=== PATIENT | female | born 1940 | race Caucasian/White ===

== ENCOUNTER 2017-08-16 05:44 | Inpatient (IN) | payer OTHER ==
[~2017-08-16] VITALS: Ht 157.5 cm; Wt 72.6 kg
[~2017-08-16 05:44] MED LIST: 24 HOUR ALLER15.8 ML BOTH NARES; AMBIEN10 MG PO; ASPIRIN81 M1 PO; CALCIUM500 M3 NG; CLARITIN,ALAVAR10 MG PO; ELIQUIS5 MG PO; FISH OIL CONC1 EACH PO; KLOR-CON M2020 MEQ PO; LASIX80 MG PO; LEXAPRO10 MG PO; NEXIUM20 MG PO; ONE DAILY WOME1 EACH PO; TOPROL XL25 MG PO; TYLENOL ARTHRI650 MG PO; WELCHOL625 MG PO; XANAX0.25 MG PO; ZETIA10 MG PO
[2017-08-16 07:11] VITALS: BP 126/68
[2017-08-16 17:45] VITALS: BP 103/56
[2017-08-16 19:33] VITALS: BP 130/60
[2017-08-16 23:39] VITALS: BP 130/65
[2017-08-17 03:59] VITALS: BP 124/58
[2017-08-17 07:18] VITALS: BP 114/57
[2017-08-17] MEDS ORDERED: ELIQUIS5 MG PO (09:03)
[2017-08-17] MEDS ORDERED: AMBIEN10 MG PO (09:04)
[2017-08-17] MEDS ORDERED: CYCLOBENZAPRINE10 MG PO (09:05)
[2017-08-17] MEDS ORDERED: HYDROCODON-ACE1 EAC7 PO (09:05)
== END 2017-08-17 13:10 | disposition home or self-care (01) | DRG 519 ==
LOC: SDC 05:44 → 2SOUTH 09:21 → ENRESERV 10:11 → SDC 10:23 → ENRESERV 16:31 → 2EASTP 17:19 → SDC 17:30 → 2EASTP 08-17 13:10
PROC: 00NW0ZZ Release Cervical Spinal Cord, Open Approach (ICD-10-PCS; principal; 2017-08-16)
DX: M48.02 Spinal stenosis, cervical region (principal); M47.12 Other spondylosis with myelopathy, cervical region; I10 Essential (primary) hypertension; E78.00 Pure hypercholesterolemia, unspecified; I49.9 Cardiac arrhythmia, unspecified; M19.90 Unspecified osteoarthritis, unspecified site; M81.0 Age-related osteoporosis without current pathological fracture; K21.9 Gastro-esophageal reflux disease without esophagitis; K58.9 Irritable bowel syndrome, unspecified; F41.9 Anxiety disorder, unspecified; Z87.891 Personal history of nicotine dependence; Z96.653 Presence of artificial knee joint, bilateral; Z85.828 Personal history of other malignant neoplasm of skin; Z86.718 Personal history of other venous thrombosis and embolism; Z79.01 Long term (current) use of anticoagulants
CPT/HCPCS: 72020; 76000; J1100; J1170; J1885; J2250; J2405; J2710; J3010; J3370; J3480; S0020